=== PATIENT | female | born 1945 | race Two or more races ===

== ENCOUNTER 2019-06-08 05:00 | Day surgery (SDC) | payer OTHER ==
[~2019-06-08 05:00] MED LIST: COZAAR25 MG PO; IRON325 MG PO; PANTOTHENIC ACID PO; ZOCOR40 MG PO
[2019-06-08] MEDS ORDERED: MACROBID 100 M100 MG PO (09:36)
[2019-06-08] MEDS ORDERED: CODE1TAB37 PO (09:37)
== END 2019-06-08 11:10 | disposition home or self-care (01) ==
LOC: CIR.AMB 05:00
DX: N81.3 Complete uterovaginal prolapse (principal)